=== PATIENT | male | born 2000 ===

== ENCOUNTER 2023-04-30 21:11 | Inpatient (IN) | payer SELFPAY ==
[2023-04-30] VITALS (23 sets, daily range): BP systolic 141–169; BP diastolic 75–122; PULSE 78–137; RESP 12–33; TEMP 36.5; O2SAT 97–100
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
[2023-04-30] MEDS: fentaNYL 100 MCG/2 ML VIAL (21:50)
[2023-04-30] MEDS: Ondansetron 4 MG/2 ML VIAL (21:50)
[2023-04-30 21:51] LABS: Abs Immature Grans 0.04 10^3/uL (0.0-0.06); Absolute Eosinophil Count 0.18 10^3/uL (0.0-0.7); Basophils % 0.7; Eosinophils % 1.1; HCT 46.2 % (40.0-50.0); HGB 15.5 g/dL (13.5-17.5); Immature Grans % 0.2; Lymphocytes % 40.7; MCH 29.2 pg (27.0-33.0); MCHC 33.5 % (32.0-36.0); MCV 87 fL (80-95); MPV 9.9 fL (8.0-11.0); Monocytes % 7.2; Neutrophils % 50.1; Platelet Count 370 10^3/uL (130-400); RDW 12.6 % (11.8-14.1); RDW-SD 40.1 fL; WBC 16.28 10^3/uL (4.4-10.8)
[2023-04-30 21:52] LABS: Prothrombin Time 9.9 sec (9.3-11.0)
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
[2023-04-30 21:59] LABS: Absolute Basophil Count 0.11 10^3/uL (0.0-0.2); Absolute Lymphocyte Count 6.63 10^3/uL (1.2-3.4); Absolute Monocyte Count 1.17 10^3/uL (0.1-0.8); Absolute Neutrophil Count 8.16 10^3/uL (1.2-6.7)
[2023-04-30 22:00] LABS: Diff Comment Agrees w/ Instrument; RBC Morphology Normal
[2023-04-30 22:01] LABS: ALT 28 U/L (16-63); AST 13 U/L (15-37); Albumin 4.3 g/dL (3.4-5.0); Alkaline Phosphatase 84 U/L (46-116); Anion Gap 18.6 mmol/L (3-11); BUN 10 mg/dL (7-18); Bilirubin, Total 0.2 mg/dL (0.2-1.0); CO2 19.4 mmol/L (21.0-32.0); CREATININE 1.2 mg/dL (0.70-1.30); Chloride 102 mmol/L (98-107); Estimated GFR 87.69 (mL/min/1.73m2); Glucose 138 mg/dL (74-106); Sodium 140 mmol/L (136-145); Total Protein 8.5 g/dL (6.4-8.2)
[2023-04-30 22:03] LABS: Potassium 2.9 mmol/L (3.5-5.1)
[2023-04-30] MEDS: Omnipaque 350 MG/ML 100 ML BTL IJ (22:05)
[2023-04-30] MEDS: Normal Saline - Diluent 50 ML VIAL IJ (22:05)
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
[2023-04-30 22:08] LABS: Lipase 22 U/L (16-77)
[2023-04-30] MEDS: MORPHine 4 MG/ML SYR IVP (22:09)
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
== END 2023-05-01 00:26 | disposition short-term general hospital (02) | DRG 605 ==
LOC: ER 23:08 → ICU 05-01 00:51
PROVIDERS: Physician Assistant; Admitting Provider Surgery; Emergency Provider Student in an Organized Health Care Education/Training Program; Visit Provider Surgery
DX: S11.93XA Puncture wound without foreign body of unspecified part of neck, initial encounter (principal); S52.92XA Unspecified fracture of left forearm, initial encounter for closed fracture; S21.131A Puncture wound without foreign body of right front wall of thorax without penetration into thoracic cavity, initial encounter; S61.532A Puncture wound without foreign body of left wrist, initial encounter; X95.9XXA Assault by unspecified firearm discharge, initial encounter
CPT/HCPCS: 36415; 70496; 70498; 71275; 80053; 83690; 86850; 86900; 86901; 86920; 90471; 96374; 96375; 99291; 73060; 73110; 74174; 85025; 85610; J0690; J2250; J2270; J2405; J2704; J3010; J3490; P9016